=== PATIENT | male | born 1950 | race Caucasian/White ===

== ENCOUNTER 2017-07-27 10:43 | Outpatient (CLI) | payer BC ==
--- OUTSIDE RECORDS SUMMARY | 2017-07-27 10:48 | XMS | Clinical Summary ---
:1950 Author Organization [facility] Address [address] [place] [address] Phone Care Team Providers Name Role Phone , Primary Care Provider Unavailable Allergies Not on File Current Medications Not on file Active Problems Not on file Social History Tobacco Use Types Packs/Day Years Used Date Never Assessed Sex Assigned at Date Recorded Not on file Last Filed Vital Signs Not on file Plan of Treatment Not on file Results Not on filefrom Last 3 Months
[2017-07-27 14:02] LABS: #Eosinphils 0.1 thou/uL (0.0-0.7); #Lymphocytes 1.5 thou/uL (1.20-3.40); #Monocytes 0.8 thou/uL (0.11-0.59); %Basophils 0.5 % (0.0-1.0); %Eosinophils 1.2 % (0.0-10.0); %Lymphocytes 19.9 % (21.0-51.0); %Monocytes 10.2 % (0.0-10.0); Hematocrit 45.4 % (42.0-52.0); Mean Platelet Volume 6.7 fL (7.4-10.4); Red Blood Cell (RBC) Count 4.81 mill/uL (4.70-6.10); White Blood Cell (WBC) Count 7.4 thou/uL (4.8-10.8)
[2017-07-27 14:27] LABS: Anion Gap 13 mmol/L (10-20); BUN (Urea Nitrogen) 15 mg/dL (8.4-25.7); Calc. Creatinine Clearance 0 mL/min (70-130); Calcium 9.1 mg/dL (7.8-10.44); Carbon Dioxide 28 mmol/L (23-31); Chloride 102 mmol/L (98-107); Estimated GFR-MDRD 62
--- NOTE | 2017-07-29 09:05 | EKG ---
Test Reason : PREOP Blood Pressure : / mmHG Vent. 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
== END 2017-07-27 10:44 | disposition home or self-care (01) ==
LOC: LABBT 10:43
PROVIDERS: ATTEND Specialist
DX: Z01.818 Encounter for other preprocedural examination (principal); D49.2 Neoplasm of unspecified behavior of bone, soft tissue, and skin
CPT/HCPCS: 80048; 85025; 93005; 93010

== ENCOUNTER 2017-07-29 06:15 | Day surgery (SDC) | payer BC ==
[2017-07-27 11:06] VITALS: BMI 39.5
--- OUTSIDE RECORDS SUMMARY | 2017-07-29 06:18 | XMS | Clinical Summary ---
:1950 Author Organization [facility] Address [address] [place] [address] Phone Care Team Providers Name Role Phone [...]
[2017-07-29] MEDS ORDERED: Ketorolac Tromethamine 30 MG/ML VIAL ONE (06:27)
[2017-07-29] MEDS ORDERED: Bupivacaine HCl 0.5%/Epinephrine 1:200,000/PF 30 ml Vial ONE (06:42)
[2017-07-29] MEDS ORDERED: Fentanyl 100 MCG/2 ML VIAL ONE (07:04)
[2017-07-29] MEDS ORDERED: Midazolam HCl 2 mg/2 ml Vial ONE (07:04)
[2017-07-29] MEDS ORDERED: Propofol 200 MG/20 ML VIAL ONE (07:44)
[2017-07-29] MEDS ORDERED: Glycopyrrolate 0.2 MG/ML 5 ML SYRINGE ONE (07:44)
[2017-07-29] MEDS ORDERED: PHENYLEPHRINE-NS 100 MCG/ML 10 ML SYRINGE ONE (07:44)
[2017-07-29] MEDS ORDERED: ePHEDrine/0.9% NaCl/PF SYRINGE 50 mg/10 ml ONE (07:44)
[2017-07-29] MEDS ORDERED: Lidocaine 2% PF 10 ML AMP (For Epidural Use) ONE (07:44)
[2017-07-29] MEDS ORDERED: Bacitracin Zinc Ointment 30 gm TUBE ONE (08:31)
--- NOTE | 2017-07-30 10:59 | OP ---
DATE OF PROCEDURE: 07/29/2017 PREOPERATIVE DIAGNOSIS: A 13 centimeter right lower back lipoma. POSTOPERATIVE DIAGNOSIS: A 13 centimeter right lower back lipoma. OPERATION PERFORMED: Excision of 13 cm right lower back lipoma with placement of a subcutaneous radha in. SURGEON: Dr. Milan Marcelino ANESTHESIA: General endotracheal. INDICATIONS: The patient is a morbidly obese 66-year-old white male. 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 This measures about 13 cm in largest dimension. It is symptomatic for the patient. PROCEDURE IN DETAIL: Informed consent was obtained. The patient was taken to the operating room formerly [facility] endotracheal anesthesia was obtained with the patient in supine position. He was then r olled over into a prone position. Lower back was prepped with ChloraPrep and draped in sterile fash ion. The tumor was marked by palpation on the skin. Local anesthetic was circumferentially infiltr ated using 0.5% Marcaine with epinephrine. A transverse elliptical incision was created over the li ricky. Dissection was carried down to the lipoma, it was carefully dissected circumferentially. It was removed intact and passed off the field. Hemostasis was meticulously achieved with electrocaute ry. The wound was irrigated. Because of the large skin flaps that had been created, a drain was pl aced. A #19 round fluted drain was brought out through the lateral aspect of the wound. It was sec ured with a 3-0 nylon suture. The wound was then closed in layers using 3-0 Vicryl to approximate t he deep layers and a running suture of 3-0 Prolene to approximate the skin edges. Antibiotic ointme nt and dry gauze dressing was applied. A sterile occlusive dressing was placed over the drain site. There were no complications. The patient tolerated the procedure well and was taken to recovery r oom in stable condition.
== END 2017-07-29 12:12 | disposition home or self-care (01) ==
LOC: SDC 06:15
PROVIDERS: ATTEND Specialist
PROC: 0JQ70ZZ Repair Back Subcutaneous Tissue and Fascia, Open Approach (ICD-10-PCS; principal; 2017-07-29)
PROC: 0WBL0ZX Excision of Lower Back, Open Approach, Diagnostic (ICD-10-PCS; principal; 2017-07-29)
DX: L98.8 Other specified disorders of the skin and subcutaneous tissue (principal); I25.10 Atherosclerotic heart disease of native coronary artery without angina pectoris; E11.9 Type 2 diabetes mellitus without complications; I10 Essential (primary) hypertension; Z79.82 Long term (current) use of aspirin; Z79.84 Long term (current) use of oral hypoglycemic drugs; Z79.02 Long term (current) use of antithrombotics/antiplatelets; Z79.899 Other long term (current) drug therapy; Z95.818 Presence of other cardiac implants and grafts; Z90.49 Acquired absence of other specified parts of digestive tract; Z90.5 Acquired absence of kidney; Z98.890 Other specified postprocedural states; Z85.528 Personal history of other malignant neoplasm of kidney
CPT/HCPCS: 88304; J0131; J0670; J1885; J2001; J2250; J2704; J3010